=== PATIENT | male | born 1990 | race Hispanic/Latino ===

== ENCOUNTER 2017-08-07 20:05 | Emergency (ER) | payer OTHER, SELFPAY ==
[2017-08-07 20:06] VITALS: BP 154/86; PULSE 86; PULSE 91; RESP 17; RESP 18; TEMP 37.2; O2SAT 97; BMI 33.9
--- NOTE | 2017-08-07 20:40 | RAD_ITS ---
STUDY: X-RAY - LEFT HAND REASON FOR EXAM: Male, 26 years old. Pain TECHNIQUE: 3 view(s) of the hand. COMPARISON: None. FINDINGS: Normal radiocarpal articulation. Normal distal radioulnar joint. Normal visualized carpal bones. Normal carpal articulations Normal carpometacarpal articulation of the thumb. Normal second through fifth carpometacarpal joints. Normal metacarpi. Normal metacarpophalangeal joint of the thumb. Normal interphalangeal joint of the thumb. Normal proximal and distal phalanges of the thumb. Normal metacarpophalangeal joints of the second through fifth fingers. Normal proximal and distal interphalangeal joints of the second through fifth fingers. Normal phalanges of the second through fifth fingers. The soft tissue structures are unremarkable. RAD/Hand Min 3 Views IMPRESSION: Normal x-ray examination of the hand. Electronically Signed: Ash Hewitt MD at 21:19 EDT , Service support ,
--- NOTE | 2017-08-07 21:24 | ED.VISSUMM ---
- ER Visit Summary Date of Service: 08/07/17 Chief Complaint: Left hand injury History of Present Illness: The patient is a 26 M who was using a sledgehammer when it hit his left hand. He notes pain at the third MCP joint of the left hand. Physical Examination: Afebrile vital signs stable Gen: Well-nourished well-developed Head: Normocephalic atraumatic Eyes: Perrl EOMI ENT: TMs clear no rhinorrhea moist mucous membranes Neck: Supple no lymphadenopathy no JVD nontender CVS: Regular rate rhythm no murmurs normal S1-S2 Respiratory: No distress clear to auscultation bilaterally chest nontender Abdomen: Soft nontender nondistended normal bowel sounds no masses Back: Nontender Extremity: Mild tenderness and swelling at the long fingers MCP joint. There is no obvious deformity. Limited range of motion due to pain and mild swelling. There are no breaks in the skin Skin: Normal color no rash Neuro: alert orientated ?3 CN II-XII intact normal strength sensation reflexes gait cerebellar Psych: Normal affect normal mood Test Results: X-rays were negative for fracture Emergency Department Course and Treatment: Be discharged home with supportive care. Instructions for limited use of the left hand at work for 3 days. [facility] Impression: 1. Left hand contusion This note was generated with [employer] dictation software. It may contain incorrect words, spelling, and punctuation that were not noted in review of the chart prior to signing ED Disposition - Plan for ED Patient: Disposition: Home or Assisted Living Chief Complaint: Upper Extremity Injury Instructions: ED Contusion Hand Additional Instructions: Follow-up with your Workmen's Comp. doctor in 1 week if not improved
--- NOTE | 2017-08-07 21:27 | ED.DCSUM_ITS ---
- ER Visit Summary Date of Service: 08/07/17 Chief Complaint: Left hand injury History of Present Illness: The patient is a 26 M who was using a sledgehammer when it hit his left hand. He notes pain at the third MCP joint of the left hand. Physical Examination: Afebrile vital signs stable Gen: Well-nourished well-developed Head: Normocephalic atraumatic Eyes: Perrl EOMI ENT: TMs clear no rhinorrhea moist mucous membranes Neck: Supple no lymphadenopathy no JVD nontender CVS: Regular rate rhythm no murmurs normal S1-S2 Respiratory: No distress clear to auscultation bilaterally chest nontender Abdomen: Soft nontender nondistended normal bowel sounds no masses Back: Nontender Extremity: Mild tenderness and swelling at the long fingers MCP joint. There is no obvious deformity. Limited range of motion due to pain and mild swelling. There are no breaks in the skin Skin: Normal color no rash Neuro: alert orientated ?3 CN II-XII intact normal strength sensation reflexes gait cerebellar Psych: Normal affect normal mood Test Results: X-rays were negative for fracture Emergency Department Course and Treatment: Be discharged home with supportive care. Instructions for limited use of the left hand at work for 3 days. [facility] Impression: 1. Left hand contusion This note was generated with [employer] dictation software. It may contain incorrect words, spelling, and punctuation that were not noted in review of the chart prior to signing ED Disposition - Plan for ED Patient: Disposition: Home or Assisted Living Chief Complaint: Upper Extremity Injury Instructions: ED Contusion Hand Additional Instructions: Follow-up with your Workmen's Comp. doctor in 1 week if not improved
[2017-08-07 22:48] VITALS: RESP 18
== END 2017-08-07 22:49 | disposition home or self-care (01) ==
PROVIDERS: Emergency Provider Emergency Medicine
DX: S60.222A Contusion of left hand, initial encounter (principal); W22.8XXA Striking against or struck by other objects, initial encounter; Y93.9 Activity, unspecified; Y92.9 Unspecified place or not applicable; Y99.9 Unspecified external cause status
CPT/HCPCS: 73130; 99282